=== PATIENT | female | born 1970 | race African-American/Black ===

== ENCOUNTER 2020-04-11 12:09 | Emergency (ER) | payer SELFPAY ==
[2020-04-11 12:20] VITALS: BP 116/70; PULSE 72; RESP 16; TEMP 36.6; O2SAT 100
--- NOTE | 2020-04-11 12:29 | W.ED.GENAD ---
Discharge Plan Disposition Patient Disposition: HOME Condition: Improving Discharge Details Clinical Impression: Closed left fibular fracture Primary Care Provider: Unknown,Unknown ED Provider: Dilan Woodall Home Meds and New Rx's Prescriptions: Continued cyclobenzaprine 10 mg Tablet 10 mg PO TID PRNRF: 0 sucralfate 1 gram Tablet 1 g PO QAC RF: 0 pantoprazole 40 mg Tablet,Delayed Release (Dr/Ec) 40 mg PO DAILY RF: 0 gabapentin 300 mg Capsule 300 mg PO DAILY RF: 0 furosemide 20 mg Tablet 20 mg PO DAILY RF: 0 paglulakof-jaopiossdkowg-uwwq [Fioricet] 50-300-40 mg Capsule 1 cap PO TID PRNRF: 0 tramadol 100 mg Tablet PO TID PRNRF: 0 Discharge Instructions Instructions: Leg Fracture (ED) Additional Instructions: Nonweightbearing with the use of crutches and walking boot until seen in orthopedic clinic. They may then help determine whether you will require surgical repair of your ankle fracture. Call the clinic at [phone] for an appointment time. Elevate above the level of the heart to reduce pain and swelling. Tylenol as needed for pain with your tramadol as needed for breakthrough pain. May remove walking boot for bathing. Return to ER for increasing pain, cold/blue/numbness of the toes, or any other acute concerns. Stand Alone Forms: Work Release Medical Decision Making 49-year-old female presents from home stating after working her 2-2 shift she slipped on some stairs approximately 3 AM last night with deviation to the left ankle and subsequent pain and swelling. Concern for underlying fracture, ice placed, patient offered analgesia which she deferred, and she was referred for x-ray. Patient has a left distal fibula fracture. There is widening of the mortise and question subtle posterior malleolus fracture. She will be made nonweightbearing & placed in a walking boot. We will have her follow-up in orthopedic clinic for recheck. 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 HPI General Mode of arrival: ambulatory. Date/Time Provider Initiated Documentation: 04/11/20 12:10. Limitations to Documentation: no limitations. Information obtained by: patient. History of Present Illness 49 year old F presents to the emergency department with the chief complaint of Left ankle sprain last night after work, described as moderate, Quality is described as dull, and is localized to the left and lower extremity. Patient reports no radiation. Patient started experiencing this hour(s) and it has been constant. No relieving factors improve symptom(s), No exacerbating factors reported . Patient notes denies chest pain, headaches, shortness of breath, syncope and weakness. Patient did receive the following treatments prior to arrival, other (Tramadol) Related Data Home Medications Medication Instructions Recorded Confirmed wnqliqjkyn-bnzqsbfalsdtu-jaus 1 cap PO TID PRN 04/11/20 04/11/20 [Fioricet] cyclobenzaprine 10 mg PO TID PRN 04/11/20 04/11/20 furosemide 20 mg PO DAILY 04/11/20 04/11/20 gabapentin 300 mg PO DAILY 04/11/20 04/11/20 pantoprazole 40 mg PO DAILY 04/11/20 04/11/20 sucralfate 1 g PO QAC 04/11/20 04/11/20 tramadol mg PO TID PRN 04/11/20 Allergies Allergy/AdvReac Type Severity Reaction Status Date / Time No Known Allergies Allergy Unverified 04/11/20 12:14 General Stated Complaint: Orthopedic BRIAN: 4 Review of Systems Narrative: No other injury. Denies headache. No loss of conscious. No neck/back/chest/abdomen/pelvis/knee pain. REPLACED BY [facility] Social History Smoking/Tobacco Use Status: Current-Occasional Smoking risk assessment performed?: Yes Alcohol Intake: current Alcohol Intake frequency: a few times a month Drug use: Occasionally Substance use type: marijuana Do you feel safe at home: Yes Do you feel safe in your relationship?: Yes Exam Narrative Exam Narrative: GEN: awake, alert, oriented 3. Pleasant, well groomed, interactive. HEAD: Normocephalic, atraumatic ENT: Mucous membranes moist, oropharynx unremarkable, External ear exam unremarkable EYES: PERRL, EOMI NECK: F nontender CHEST/RESP: Nontender EXT: Range of motion intact, limited by pain left. Bimalleolar swelling and tenderness left. Palpable DP bilaterally. Sensation intact throughout. Neuro: Grossly normal neurologic exam, conversant, interactive. Psych: Speech fluent, thoughts congruent, affect normal Course Vital Signs Vital signs: Vital Signs Temperature 36.6 C 04/11/20 12:20 Pulse 72 04/11/20 12:20 Respiratory Rate 16 04/11/20 12:20 Blood Pressure 116/70 04/11/20 12:20 Pulse Oximetry 100 04/11/20 12:20 Temperature 36.6 C 04/11/20 12:20 Temperature Source Temporal Artery Scan 04/11/20 12:20 Pulse 72 04/11/20 12:20 Respiratory Rate 16 04/11/20 12:20 Respiratory Effort Non-Labored 04/11/20 12:23 Blood Pressure 116/70 04/11/20 12:20 Blood Pressure Position Supine 04/11/20 12:20 Pulse Oximetry 100 04/11/20 12:20 Oxygen Delivery Method Room Air 04/11/20 12:20 Oxygen Flow Rate 0 04/11/20 12:20 Pain Level 9 04/11/20 12:20
--- NOTE | 2020-04-11 13:00 | DI.RAD_ITS ---
EXAM: 2D digital imaging was performed. CLINICAL HISTORY: Fall, pain and swelling. COMPARISON: No exams were available for comparison TECHNIQUE: Supine views of the abdomen performed. FINDINGS: There is an oblique fracture extending through the lateral malleolus to the level of the ankle mortis e. There is mild displacement. There is marked soft tissue swelling around the malleoli. A tiny fr acture fragment is questioned adjacent to the posterior malleolus. There is widening of the medial a nkle mortise. No talar dome defect is seen. IMPRESSION: Mildly displaced lateral malleolar fracture. Widening of the medial ankle mortise. Question of tiny fracture fragment at the posterior malleolus. DATA REPOSITORY: RADIATION DOSE DELIVERED:
--- NOTE | 2020-04-11 13:08 | DI.VRAD_ITS ---
PROCEDURE INFORMATION: Exam: XR Left Ankle Exam date and time: 04/11/2020 12:54 PM Age: 49 years old Clinical indication: Other: Fall, pain and swelling TECHNIQUE: Imaging protocol: XR Left ankle. Views: 3 or more views. COMPARISON: No relevant images were readily available for comparison purposes. FINDINGS: There is a mildly displaced obliquely oriented distal fibular fracture. Acute in appearance. There is widening of the medial clear space. Prominent soft tissue swelling about the ankle. Possible tiny fracture fragment along the posterior malleolus on the lateral view. IMPRESSION: 1. Acute fibular fracture. 2. Widening of the medial clear space compatible with ligamentous injury. 3. Possible tiny posterior malleolar fracture. Dictated and Authenticated by: Sandor Fuentes MD. Ordering:CHICHO Kong MD
== END 2020-04-11 13:35 | disposition home or self-care (01) ==
PROVIDERS: Emergency Provider Emergency Medicine
DX: S82.492A Other fracture of shaft of left fibula, initial encounter for closed fracture (principal); W10.8XXA Fall (on) (from) other stairs and steps, initial encounter; X50.9XXA Other and unspecified overexertion or strenuous movements or postures, initial encounter
CPT/HCPCS: 29515; 99283; 73610

== ENCOUNTER → 2020-04-14 10:55 | Outpatient (CLI) | payer SELFPAY ==
--- NOTE | 2020-04-14 10:30 | DI.RAD_ITS ---
EXAM: XR ANKLE LT 2V INDICATION: left ankle fracture. COMPARISON: CR,XR XR ANKLE LT COMPLETE from 04/11/2020 TECHNIQUE: 2D digital imaging was performed. FINDINGS: A mortise view and gravity stress view were performed. An oblique fracture through the distal fibula is again noted. Widening of the medial ankle mortise is demonstrated. There is no talar dome defec t. No distal tibial fracture is seen. DATA REPOSITORY: RADIATION DOSE DELIVERED:
== END ==
PROVIDERS: Referring Provider Student in an Organized Health Care Education/Training Program; Visit Provider Physician Assistant
DX: S82.432A Displaced oblique fracture of shaft of left fibula, initial encounter for closed fracture (principal)
CPT/HCPCS: 73600

== ENCOUNTER → 2020-04-21 09:47 | Outpatient (CLI) | payer SELFPAY ==
--- NOTE | 2020-04-21 08:00 | DI.RAD_ITS ---
EXAM: XR ANKLE LT COMPLETE CLINICAL HISTORY: f/u fracture TECHNIQUE: 2D digital imaging was performed. COMPARISON: CR,XR XR ANKLE LT COMPLETE from 04/11/2020 CR XR ANKLE LT 2V from 04/14/2020 FINDINGS: BONES: There has been no change in alignment of the distal left fibular fracture. No bony destructiv e lesion is seen. JOINTS:Alignment of the ankle mortise appears stable. SOFT TISSUE: There is persistent soft tissue swelling about the ankle. IMPRESSION: Stable left ankle fracture. DATA REPOSITORY: RADIATION DOSE DELIVERED:
== END ==
PROVIDERS: Visit Provider Physician Assistant
DX: S82.492A Other fracture of shaft of left fibula, initial encounter for closed fracture (principal)
CPT/HCPCS: 73610

== ENCOUNTER 2020-05-12 09:29 | Outpatient (CLI) | payer SELFPAY ==
--- NOTE | 2020-05-12 09:15 | DI.RAD_ITS ---
EXAM: XR ANKLE LT COMPLETE CLINICAL HISTORY: f/u TECHNIQUE: 2D digital imaging was performed. COMPARISON: CR XR ANKLE LT 2V from 04/14/2020 CR XR ANKLE LT COMPLETE from 04/21/2020 FINDINGS: There has been no change in alignment of the distal left fibular fracture compared to the examination from 04/14/2020 and 04/21/2020. No new fracture or dislocation is present. Alignment of the ankle ap pears stable. Mild persistent soft tissue swelling about the ankle is noted. IMPRESSION: Stable distal fibular fracture. DATA REPOSITORY: RADIATION DOSE DELIVERED:
== END 2020-05-12 09:30 | disposition home or self-care (01) ==
LOC: DIORS 09:30
PROVIDERS: Referring Provider Student in an Organized Health Care Education/Training Program; Visit Provider Student in an Organized Health Care Education/Training Program
DX: S82.492A Other fracture of shaft of left fibula, initial encounter for closed fracture (principal)
CPT/HCPCS: 73610